=== PATIENT | male | born 1995 | race American Indian/Alaskan Native ===

== ENCOUNTER 2020-09-17 07:31 | Emergency (ER) | payer OTHER ==
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
[2020-09-17 10:06] VITALS: BP 136/79
== END 2020-09-17 10:05 | disposition home or self-care (01) ==
LOC: ED 07:31
DX: M54.2 Cervicalgia (principal); V49.59XA Passenger injured in collision with other motor vehicles in traffic accident, initial encounter; Y93.89 Activity, other specified; Y92.89 Other specified places as the place of occurrence of the external cause; Y99.8 Other external cause status
CPT/HCPCS: 99281